=== PATIENT | male | born 1995 | race Caucasian/White ===

== ENCOUNTER 2020-09-10 11:13 | Emergency (ER) | payer OTHER, BC ==
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
== END 2020-09-10 13:05 | disposition home or self-care (01) ==
LOC: JD.ED 11:13
DX: S13.4XXA Sprain of ligaments of cervical spine, initial encounter (principal); M43.6 Torticollis; V89.2XXA Person injured in unspecified motor-vehicle accident, traffic, initial encounter; Y92.89 Other specified places as the place of occurrence of the external cause; Y99.0 Civilian activity done for income or pay
CPT/HCPCS: 99283